=== PATIENT | male | born 1960 | race Caucasian/White ===

== ENCOUNTER → 2024-11-21 10:10 | Outpatient (AMB) | payer OTHER, SELFPAY ==
--- NOTE | 2024-11-21 10:24 | A.OFFVIS_ITS ---
Intake Visit Reasons: 6m Migraine Allergies No Known Allergies Allergy (Mild, Unverified 01/19/20 17:36) NA Medication List - Last Reconciled 11/21/24 by Bettie Flanagan MD propranolol 20 mg PO DAILY testosterone 2 packets topical DAILY umeclidinium 62.5 mcg/actuation (Incruse Ellipta) 1 inh inhalation DAILY HPI Comments Details: 66 years old man with a obesity, diet-controlled diabetes, and alcohol or migraine. He took propranolol and stated that after few days of taking it his symptoms were resolved and he stopped having oscillopsia. he was happy. [facility] Medical History (Updated 11/21/24 @ 10:25 by Bettie Flanagan MD) Ocular migraine Family History (Updated 11/15/24 @ 10:42 by Serafin Lozoya MA) Unknown Migraine Review of Systems Const Details: Constitutional:?No fever, chills, fatigue, weight loss, or night sweats. HEENT:?No headache, vision changes, hearing loss, nasal congestion, sore throat. Neurological:?No dizziness, syncope, seizures, numbness, tingling, weakness, tremors, memory loss. Psychiatric:?No anxiety, depression, mood swings, sleep disturbance, or hallucinations. Endocrine:?No heat/cold intolerance, polydipsia, polyuria, or hair/skin changes. Hematologic/Lymphatic:?No easy bruising, bleeding, or lymphadenopathy. Integumentary (Skin):?No rash, lesions, itching, or color changes. ? Physical Exam Neuro Other: Mental Status: Alert and oriented to person, place, and time. Normal attention. Normal spontaneous speech, fluency, and comprehension. No obvious issues with mood and memory. Affect is appropriate. Cranial Nerves: CN II: Visual bailey full to confrontation, visual acuity intact. CN III, IV, : Pupils equal, round, reactive to light and accommodation. Extraocular movements are normal. CN V: Facial sensation is normal. CN VII: Facial movements symmetrical. CN VIII: Hearing intact to bedside conversation is normal. CN IX, X: Palate elevates symmetrically. CN XI: Shoulder shrug and head turn symmetrical. CN XII: Tongue midline without atrophy or fasciculations. Motor: Bulk and tone normal in all extremities. No significant muscle weakness in arms and legs. No drift. Reflexes: Deep tendon reflexes 2+ and symmetric. Plantar response down-going bilaterally. Coordination: [id number] and [id number] testing normal. No dysmetria. Gait and Station: No obvious gait abnormality. No ataxia or instability. Sensory: Intact to light touch, pinprick, and vibration. Romberg is negative. Extrapyramidal: Full facial expressions and blinking. No rigidity. Movements are appropriate with no tremor or abnormality. Speech: Normal; no dysarthria or tremor. Assessment & Plan Assessment & Plan (1) Ocular migraine: Comment: MRI brain WO at [facility] in October 2023: WNL Code(s): G43.109 - Migraine with aura, not intractable, without status migrainosus Category: Medical Plan impression ; 64 years old man with ocular migraine in remission Recommendations: propranolol 20 mg as needed. Follow-up is also as needed as his symptoms were completely resolved at this time. Coding Level of Care Code Est Pt Level 3 (83994) Diagnoses Ocular migraine G43.109
== END ==
LOC: HO.HSM 10:11
PROVIDERS: PCP Physician Assistant; Visit Provider Psychiatry & Neurology Neurology
DX: G43.109 Migraine with aura, not intractable, without status migrainosus (principal)
CPT/HCPCS: 99213

== ENCOUNTER → 2024-11-21 10:10 | Outpatient (BNVA) | payer OTHER, SELFPAY | PROVIDERS: PCP Physician Assistant; Visit Provider Psychiatry & Neurology Neurology | DX: G43.109 Migraine with aura, not intractable, without status migrainosus (principal) | CPT/HCPCS: 99212 ==